=== PATIENT | female | born 1990 | race Caucasian/White ===

== ENCOUNTER 2017-10-27 08:01 | Day surgery (SDC) | payer BC, OTHER ==
[2017-10-27] MEDS ORDERED: Lactated Ringers 1,000 ML IV SCH (09:00)
--- NOTE | 2017-10-27 10:14 | PCM.HPR ---
H & P Addendum review - H & P Addendum Review Date of Original H & P: 10/21/17 Date Reviewed: 10/27/17 Time Reviewed: 10:15 Patient was Examined: No Changes
[2017-10-27] MEDS ORDERED: Dexamethasone 4 MG/ML 5 ML MDV IVPUSH ONE (10:30)
[2017-10-27] MEDS ORDERED: Lactated Ringers 1,000 ML IV ONE (10:30)
[2017-10-27] MEDS ORDERED: Neostigmine Methylsulfate 1 MG/ML 5 ML Syringe IV ONE (10:30)
[2017-10-27] MEDS ORDERED: Succinylcholine 200 MG/10 ML MDV IV ONE (10:30)
[2017-10-27] MEDS ORDERED: Rocuronium 100 MG/10 ML MDV IV ONE (10:30)
[2017-10-27] MEDS ORDERED: Ondansetron 4 MG/2 ML SDV IVPUSH ONE (10:30)
[2017-10-27] MEDS ORDERED: Midazolam 1 MG/ML 2 ML SDV IV ONE (10:30)
[2017-10-27] MEDS ORDERED: fentaNYL 100 MCG/2 ML SDV IV ONE (10:30)
[2017-10-27] MEDS ORDERED: diphenhydrAMINE 50 MG/ML SDV IV ONE (10:30)
[2017-10-27] MEDS ORDERED: ceFAZolin 1 GM Vial IV ONE (10:30)
[2017-10-27] MEDS ORDERED: Propofol 200 MG/20 ML SDV IV ONE (10:30)
--- NOTE | 2017-10-27 12:25 | PCM.OPNOTE ---
- General Post-Op/Procedure Note Date of Surgery/Procedure: 10/27/17 Operative Procedure(s): Lap any with Adhesiolysis Findings: Cholecystitis with Adhesions; Cholelithiasis Pre Op Diagnosis: Symptomatic Cholelithiasis Post-Op Diagnosis: Same Anesthesia Technique: General ET Tube Primary Surgeon: Dylan Reynoso Anesthesia Provider: Taisha Quesada Pathology: Gallbladder EBL in mLs: 20 Complications: None Condition: Good
[2017-10-27] MEDS ORDERED: Morphine 2 MG/ML Syringe IVPUSH PRN (12:35)
[2017-10-27] MEDS ORDERED: Acetaminophen/HYDROcodone 325-5 MG Tab PO ONE (12:41)
--- NOTE | 2017-10-27 21:11 | OR ---
DATE OF OPERATION: 10/27/2017 SURGEON: Dylan Reynoso MD PREOPERATIVE DIAGNOSIS: Symptomatic cholelithiasis. POSTOPERATIVE DIAGNOSES: 1. Symptomatic cholelithiasis. 2. Chronic cholecystitis. ANESTHESIA: General. DESCRIPTION OF PROCEDURE: The patient was brought to the operating room, where general endotracheal anesthesia was administered. The abdomen was prepped with ChloraPrep and draped sterilely. An infraumbilical incision was made and extended into the peritoneal cavity without difficulty. The Alex cannulator was introduced and pneumoperitoneum obtained. The remaining three 5 mm ports were placed in the usual positions. The patient was placed in reverse Trendelenburg position and rotated to the left. The gallbladder was hard and fluid-filled and unable to be grasped, so 30 mL of white bile was aspirated to allow the gallbladder to be grasped. About 20 minutes was spent taking down adhesions from the undersurface of the gallbladder to totally expose it. Minimal oozing occurred, that was controlled with electrocautery during this portion. The cystic duct was dissected free with some difficulty because of inflammation and edema. I was also able to identify the cystic artery, which divided into 2 branches. Each of the cystic artery branches was doubly clipped proximally and once distally and then transected allowing better mobilization of the gallbladder. Once the anatomy of the cystic duct was confirmed, it could be seen entering the gallbladder and extending towards the common bile duct, it was milked back into the gallbladder. A cystic duct stone was impacted in the neck making visualization and grasping difficult during the procedure. The cystic duct was doubly clipped proximally and once distally and then transected. The gallbladder was then removed from the bed of the liver with moderate difficulty because of significant inflammation and edema. There was oozing throughout, which was controlled with electrocautery. Once the gallbladder was completely freed up, it was brought out part way through the umbilical incision and opened with removal of more bile and stones and then removed the remainder of the way. The right upper quadrant was thoroughly inspected and irrigated. More cauterization was done on the bed of the liver where some small areas of oozing remained. I placed a piece of Nu-Knit Surgicel in the bed of the liver. After all the irrigation fluid was suctioned, the ports were removed under direct vision and remained hemostatic. Umbilical fascia was closed with figure-of- eight 0 Vicryl. Skin was closed with 4-0 Vicryl subcuticular sutures. Benzoin and Steri-Strips were placed and Band-Aids applied. The patient tolerated the procedure well. Estimated blood losswas 20 mL. She returned to postanesthesia in stable condition. /[id number] CHARY/ARACELI
== END 2017-10-27 14:45 | disposition home or self-care (01) ==
LOC: FB.SDS 08:01
PROVIDERS: ATTEND Surgery
DX: K80.00 Calculus of gallbladder with acute cholecystitis without obstruction (principal); I10 Essential (primary) hypertension; Z88.0 Allergy status to penicillin
CPT/HCPCS: 81025; 88304; A9270-GY; J0131; J0330; J0690; J1100; J1200; J2250; J2405; J2704; J3010; J7120